=== PATIENT | female | born 2000 | race Caucasian/White ===

== ENCOUNTER 2021-08-21 20:43 | Emergency (ER) | payer OTHER ==
[~2021-08-21] VITALS: Ht 160 cm; Wt 51.4 kg
[2021-08-21] MEDS ORDERED: ADDERALL 5 MG TA5 MG PO (20:57)
[2021-08-21] MEDS ORDERED: LEXAPRO5 MG PO (20:57)
[2021-08-21 21:29] LABS: BASO # 0.02 K/mm3 (0.02-0.10); EOS # 0.11 K/mm3 (0.04-0.40); EOS % 2.1 % (0.1-4.0); HEMATOCRIT 37.6 % (35.0-45.0); HEMOGLOBIN 12.7 g/dL (12.0-15.0); LYMPH# 2.79 K/mm3 (1.20-3.40); MEAN CELL VOLUME 89 fl (78-95); MEAN CORPUSCULAR HEMOGLOBIN 30 pg (26-32); MEAN CORPUSCULAR HGB CONC 34 g/dL (33-37); MEAN PLATELET VOLUME 10.8 fl (7.4-10.4); MONO # 0.45 K/mm3 (0.10-0.60); PLATELET COUNT 253 K/mm3 (130-400); RED BLOOD COUNT 4.22 M/mm3 (4.10-5.30); RED CELL DISTRIBUTION WIDTH 12.4 % (11.5-14.5); WHITE BLOOD COUNT 5.3 K/mm3 (4.8-10.8)
[2021-08-21 21:45] LABS: ALBUMIN 4.4 g/dL (3.5-5.0); POTASSIUM 3.7 mmol/L (3.5-5.1)
[2021-08-21 21:46] LABS: CALCIUM 9.7 mg/dL (8.3-10.5)
[2021-08-21 21:48] LABS: TOTAL PROTEIN 6.9 g/dL (6.4-8.3)
[2021-08-21 21:49] LABS: TOTAL BILIRUBIN 0.6 mg/dL (0.2-1.2)
[2021-08-21 21:54] LABS: URINE APPEARANCE HAZY; URINE BILIRUBIN NEGATIVE (NEGATIVE); URINE BLOOD NEGATIVE (NEGATIVE); URINE COLOR YELLOW; URINE GLUCOSE NEGATIVE (NEGATIVE); URINE KETONE NEGATIVE (NEGATIVE); URINE LEUKOCYTE ESTERASE 1+ (NEGATIVE); URINE NITRATE NEGATIVE (NEGATIVE); URINE PROTEIN(semi-quant) TRACE (NEGATIVE); URINE UROBILINOGEN NORMAL (NORMAL)
[2021-08-21 22:13] LABS: D-DIMER 0.08 mg/L FEU (0.15-0.50)
[2021-08-21] MEDS ORDERED: MACROBID 100 M100 MG PO (23:17)
[2021-08-21 23:30] VITALS: BP 102/68
== END 2021-08-21 23:30 | disposition home or self-care (01) ==
LOC: ED 20:43
PROVIDERS: Nurse Practitioner
DX: N39.0 Urinary tract infection, site not specified (principal); R42 Dizziness and giddiness; Z20.822 Contact with and (suspected) exposure to COVID-19
CPT/HCPCS: J0696; J7030